=== PATIENT | male | born 1985 | race Caucasian/White ===

== ENCOUNTER 2016-06-16 15:40 | Emergency (ER) | payer OTHER ==
--- NOTE | 2016-06-16 15:44 | EDM.PDOC ---
ED HPI Trauma - General Chief Complaint: Lower Extremity Injury/Pain Stated Complaint: BROKEN RIGHT ANKLE Time Seen by Provider: 06/16/16 15:44 Source: Reports: Patient, Family, RN, RN notes reviewed History Limitations: Reports: No limitations - History of Present Illness INITIAL COMMENTS - FREE TEXT/NARRATIVE: Patient arrives by POV complaining of pain in right ankle which was sustained from a fall of approximately 20 feet from a tree to the ground. Patient states that he climbed a tree to retrieve his hat that had blown into the tree. He slipped and fell. Injury was not work related. Patient denies any other injury or any other area of pain, specifically denies any neck pain, thoracic pain, lumbosacral pain or pelvic pain. Denies any nausea or vomiting. Injury occurred approximately one and half hours ago. Symptom Onset Date: 06/16/16 Occurred Where: other Method of Injury: fall Severity: severe Pain/Injury Location: Reports: lower extremity, right Associated Symptoms: Reports: no other symptoms Allergies/ADRs: Allergies venom-honey bee [bee venom (honey bee)] Allergy (Intermediate, Verified 00:19) Airway Tightness hives cefaclor [From Ceclor] Allergy (Verified 03/30/16 00:19) Hives penicillin Allergy (Verified 03/30/16 00:19) Hives Home Medications: Ambulatory Orders . [No Known Home Meds] 12/04/13 [Confirmed 03/30/16] Past Medical History - Past Health History Medical/Surgical History: Denies Medical/Surgical History - Past Surgical History GI Surgical History: Reports: Appendectomy Social & Family History - Family History Family Medical History: Noncontributory - Tobacco Use Smoking Status *Q: Current Every Day Smoker Years of Tobacco use: 4 Packs/Tins Daily: 0.2 Second Hand Smoke Exposure: Yes - Caffeine Use Caffeine Use: Reports: Coffee, Energy drinks, Soda - Alcohol Use Days Per Week of Alcohol Use: 1 Number of Drinks Per Day: 1 Total Drinks Per Week: 1 - Recreational Drug Use Recreational Drug Use: No - Living Situation & Occupation Living situation: Reports: with family Review of Systems - Review of Systems Review Of Systems: ROS reveals no pertinent complaints other than HPI. Trauma Exam - Physical Exam Exam: See Below Text/Narrative:: PRIMARY TRAUMA SURVEY: Arrives by POV approx. 60 to 90 minutes after falling approx. 20ft from a tree and landing on his feet. Pt awake, alert, oriented to person, place, and date. Patent nasal and oral airways. Conversant with clear speech. Spontaneous respirations, with lungs CTA B/L. Good color, no cyanosis, intact peripheral pulses at all 4 distal extremities, normal capillary refill time at all four extremities distal digits. Heart RRR, no murmur, no rub. No bleeding. No upper extremity or left lower extremity pain, obvious deformity, lacerations, abrasions, swelling, bruising, discoloration, or other signs of injury. Right lower extremity with acutely painful ankle, mild lateral swelling , no bruising, or visible deformity, distal pulses intact, normal color, normal distal capillary refill. Jm pelvis intact, stable and non-tender. Abdomen benign to exam. Chest non-tender anteriorly, no flail chest, crepitus, or subcutaneous emphysema. CN II-XII intact. B/L shoulder and lateral upper arm to elbow subjective numbness to light and sharp touch R>>L, with mild generalized motor weakness of the Rt upper extremity, no other motor or sensory neuro. deficits. Skin clean, dry, warm, and intact. Pt was logged rolled with maintenance of c-spine immobilization, shirt was cut free from back. No visible injury to back, no vertebral jm tenderness. Long spine board removed and pt returned via log roll to supine position on firm foam padded ER gurney. SECONDARY TRAUMA SURVEY FOLLOWS: Exam Limited By: No limitations General Appearance: Reports: alert, WD/WN, anxious, mild distress (due to left ankle pain) Head: Reports: atraumatic, normocephalic Eyes: bilateral eye: EOMI, normal inspection, PERRL Ears: Reports: normal external exam, normal canal, hearing grossly normal, normal TMs Nose: Reports: normal inspection, normal mucousa, no blood Throat/Mouth: Reports: Normal inspection, Normal lips, Normal teeth, Normal gums , Normal oropharynx, Normal voice, No airway compromise Neck: Reports: non-tender, full range of motion, normal alignment, normal inspection, other (C-spine clear by Hx and exam, no Nexus criteria). Denies: paraspinous muscle tender, spinous processes tender, tenderness, tender lateral , tender midline Respiratory Exam: Reports: no respiratory distress, lungs clear, normal breath sounds, no accessory muscle use, chest non-tender Cardiovascular: Reports: normal peripheral pulses, regular rate, rhythm, no edema, no gallop, no JVD, no murmur, no rub, tachycardia (HR 102) GI/Abdominal: Reports: normal bowel sounds, soft, non tender, no organomegaly, no distention, no abnormal bruit, no mass. Denies: rigid, guarding, rebound (Male) Exam: Deferred Rectal (Males) Exam: Deferred Back: Reports: full range of motion, normal inspection, non-tender. 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 DIRECTED Care 06/16/16 15:56 Active Splinting [RC] ASDIRECTED Care 06/16/16 16:10 Active AMYLASE [CHEM] Stat Lab 06/16/16 16:12 Received COMPREHENSIVE METABOLIC PN,CMP [CHEM] Stat Lab 06/16/16 16:12 Received DRUG SCREEN URINE BIORAD [URCHEM] Stat Lab 06/16/16 16:51 Ordered ETHANOL BLOOD MEDICAL [CHEM] Stat Lab 06/16/16 16:12 Received LIPASE [CHEM] Stat Lab 06/16/16 16:12 Received UA W/MICROSCOPIC [URIN] Stat Lab 06/16/16 16:51 Ordered Sodium Chloride 0.9% [Saline Flush] Med 06/16/16 15:52 Active 10 ml FLUSH ASDIRECTED PRN DME for Discharge [COMM] Routine Oth 06/16/16 16:10 Ordered DME for Discharge [COMM] Routine Oth 06/16/16 16:11 Ordered Peripheral IV Insertion Adult [OM.PC] Stat Oth 06/16/16 15:53 Ordered Medication Orders Sodium Chloride (Saline Flush) 10 ml FLUSH ASDIRECTED PRN PRN Reason: Keep Vein Open Last Admin: 06/16/16 16:54 Dose: 10 ml Labs: Laboratory Tests 06/16/16 06/16/16 Range/Units 16:12 16:12 WBC 9.0 (5.0-10.0) 10^3/uL RBC 4.90 (4.6-6.2) 10^6/uL Hgb 15.5 (14.0-18.0) g/dL Hct 43.5 (40.0-54.0) % MCV 88.8 (80-100) fL MCH 31.6 (27.0-34.0) pg MCHC 35.6 H (33.0-35.0) g/dL Plt Count 282 (150-450) 10^3/uL Neut % (Auto) 54.9 (42.2-75.2) % Lymph % (Auto) 34.2 (20.5-50.1) % [place] % (Auto) 7.6 (2-8) % Eos % (Auto) 2.7 (1.0-3.0) % Baso % (Auto) 0.6 (0.0-1.0) % PT 9.7 (9.0-12.0) SEC INR 1.0 (0.9-1.2) APTT 21.5 L (22.0-34.0) SEC Meds: Medications Generic Name Dose Route Start Last Admin Trade Name Freq PRN Reason Stop Dose Admin Sodium Chloride 10 ml 06/16/16 15:52 06/16/16 16:54 Saline Flush FLUSH 10 ml ASDIRECTED PRN Administration Keep Vein Open Discontinued Medications Generic Name Dose Route Start Last Admin Trade Name Freq PRN Reason Stop Dose Admin Hydromorphone HCl 1 mg 06/16/16 15:57 06/16/16 16:15 Dilaudid IVPUSH 06/16/16 15:58 1 mg ONETIME ONE Administration Sodium Chloride 1,000 mls @ 999 mls/hr 06/16/16 15:57 06/16/16 16:52 Normal Saline IV 06/16/16 16:57 999 mls/hr .BOLUS ONE Administration Iopamidol 100 ml 06/16/16 16:51 06/16/16 16:54 Isovue-300 (61%) IVPUSH 06/16/16 16:52 100 ml ONETIME ONE Administration Ondansetron HCl 4 mg 06/16/16 15:57 06/16/16 16:15 Zofran IV 06/16/16 15:58 4 mg ONETIME ONE Administration - Radiology Interpretation Free Text/Narrative:: Right ankle x-ray: Angulated distal fibula fracture minimally displaced. See rad report. Chest CT: Normal chest CT per rad report. CT abdomen and pelvis: Per rad report no acute findings. - Re-Assessments/Exams Free Text/Narrative Re-Assessment/Exam: 06/16/16 17:18 I explained the exam findings, results of all diagnostic tests, working diagnosis, and any potential or additionally considered diagnoses, treatment/ disposition plan, self/home care instructions, rational for the diagnosis/ treatment plan/disposition plan, anticipated course of illness, and follow up instructions to the pt and/or pts family or guardian. The pt and/or pts family or guardian acknowledges understanding of the above explanation(s), and of the signs and symptoms which should prompt the return of the pt to the ER should those or any other concerning symptoms develop. Departure - Departure Time of Disposition: 17:18 Disposition: Home, Self-Care 01 Condition: good Clinical Impression: Closed fracture of distal fibula Qualifiers: Encounter type: initial encounter Fracture morphology: other fracture Laterality: right Qualified Code(s): S82.831A - Other fracture of upper and lower end of right fibula, initial encounter for closed fracture Fall from tree Qualifiers: Encounter type: initial encounter Qualified Code(s): W14.XXXA - Fall from tree , initial encounter Instructions: Ankle Fracture, [id number]-uv-[id number] Forms: ED Department Discharge Additional Instructions: Use splint boot, remove only to wash. No weight bearing on right foot, use crutches. Rest, ice and elevate right ankle. [place] 5mg/325mg. Call [facility] SundayJune 20 to make appointment with Dr. Avery Yao. Return to ER if any problems over the holiday weekend. - My Orders Last 24 Hours: My Active Orders 06/16/16 15:52 Sodium Chloride 0.9% [Saline Flush] 10 ml FLUSH ASDIRECTED PRN 06/16/16 15:53 Peripheral IV Insertion Adult [OM.PC] Stat 06/16/16 15:56 Peripheral IV Care [RC] . DIRECTED 06/16/16 16:10 Splinting [RC] ASDIRECTED DME for Discharge [COMM] Routine 06/16/16 16:11 DME for Discharge [COMM] Routine 06/16/16 16:12 AMYLASE [CHEM] Stat COMPREHENSIVE METABOLIC PN,CMP [CHEM] Stat ETHANOL BLOOD MEDICAL [CHEM] Stat LIPASE [CHEM] Stat 06/16/16 16:51 DRUG SCREEN URINE BIORAD [URCHEM] Stat UA W/MICROSCOPIC [URIN] Stat - Assessment/Plan Last 24 Hours: My Active Orders 06/16/16 15:52 Sodium Chloride 0.9% [Saline Flush] 10 ml FLUSH ASDIRECTED PRN 06/16/16 15:53 Peripheral IV Insertion Adult [OM.PC] Stat 06/16/16 15:56 Peripheral IV Care [RC] . DIRECTED 06/16/16 16:10 Splinting [RC] ASDIRECTED DME for Discharge [COMM] Routine 06/16/16 16:11 DME for Discharge [COMM] Routine 06/16/16 16:12 AMYLASE [CHEM] Stat COMPREHENSIVE METABOLIC PN,CMP [CHEM] Stat ETHANOL BLOOD MEDICAL [CHEM] Stat LIPASE [CHEM] Stat 06/16/16 16:51 DRUG SCREEN URINE BIORAD [URCHEM] Stat UA W/MICROSCOPIC [URIN] Stat
[2016-06-16 15:46] VITALS: BP 138/92
[2016-06-16] MEDS ORDERED: Sodium Chloride 0.9% 10 ML Syringe FLUSH PRN (15:52)
[2016-06-16] MEDS ORDERED: Ondansetron 4 MG/2 ML SDV IV ONE (15:57)
[2016-06-16] MEDS ORDERED: HYDROmorphone 1 MG/ML Syringe IVPUSH ONE (15:57)
[2016-06-16] MEDS ORDERED: Sodium Chloride 0.9% 1,000 ML IV ONE (15:57)
[2016-06-16 16:38] LABS: CHLORIDE,CL 102 mmol/L (101-111); SODIUM,NA 137 mmol/L (135-145)
[2016-06-16] MEDS ORDERED: Iopamidol 612 MG/ML 100 ML Bottle IVPUSH ONE (16:51)
== END 2016-06-16 17:54 | disposition home or self-care (01) ==
LOC: DL.ED 15:40
DX: S82.831A Other fracture of upper and lower end of right fibula, initial encounter for closed fracture (principal); F17.210 Nicotine dependence, cigarettes, uncomplicated; Z90.49 Acquired absence of other specified parts of digestive tract; Z91.030 Bee allergy status; Z88.0 Allergy status to penicillin; Z88.8 Allergy status to other drugs, medicaments and biological substances; W14.XXXA Fall from tree, initial encounter
CPT/HCPCS: 36415; 71260; 73610; 74177; 80053; 80305; 81001; 82150; 83690; 85025; 85610; 85730; 96361; 96374; 96375; 99285; G0480; J1170; J2405; J7030; J7050; Q9967

== ENCOUNTER 2017-02-04 14:12 | Emergency (ER) | payer OTHER ==
[2017-02-04 14:19] VITALS: BP 135/91
--- NOTE | 2017-02-04 14:59 | EDM.PDOC ---
Scribed by Helga Vigil 02/04/17 1804 for Adalid Gonzalez MD ED HPI GENERAL MEDICAL PROBLEM - General Chief Complaint: ENT Problem Stated Complaint: COLD, LEFT EAR PLUGGED Time Seen by Provider: 02/04/17 14:25 Source of Information: Reports: Patient, RN, RN Notes Reviewed History Limitations: Reports: No Limitations - History of Present Illness INITIAL COMMENTS - FREE TEXT/NARRATIVE: Patient complains of cough, cold and congestion x1 week. Onset of left earache last night and sore throat x3 days. Denies fevers. Today he blew his nose and had a sharp left ear pain followed by blood drainage from the left ear. Location: Reports: Head Quality: Reports: Ache Severity: Severe Improves with: Reports: None Worsens with: Reports: None Associated Symptoms: Reports: No Other Symptoms Left Ear Pain Score (Numeric/FACES): 6 - Related Data Allergies Allergy/AdvReac Type Severity Reaction Status Date / Time venom-honey bee Allergy Intermediate Airway Verified 03/30/16 00:19 [bee venom (honey bee)] Tightness cefaclor [From Ceclor] Allergy Hives Verified 03/30/16 00:19 penicillin Allergy Hives Verified 03/30/16 00:19 Home Meds: Home Meds . [No Known Home Meds] 12/04/13 [History] Past Medical History - Past Health History Medical/Surgical History: Denies Medical/Surgical History HEENT History: Reports: Otitis Media (recurrent with tubes.) - Past Surgical History HEENT Surgical History: Reports: Myringotomy w Tube(s) GI Surgical History: Reports: Appendectomy Social & Family History - Family History Family Medical History: Noncontributory - Tobacco Use Smoking Status *Q: Current Every Day Smoker Years of Tobacco use: 4 Packs/Tins Daily: 0.2 Second Hand Smoke Exposure: Yes - Caffeine Use Caffeine Use: Reports: Coffee, Energy Drinks, Soda - Alcohol Use Days Per Week of Alcohol Use: 1 Number of Drinks Per Day: 1 Total Drinks Per Week: 1 - Recreational Drug Use Recreational Drug Use: No - Living Situation & Occupation Living situation: Reports: with Family ED ROS ENT - Review of Systems Review Of Systems: ROS reveals no pertinent complaints other than HPI. ED EXAM, ENT - Physical Exam Exam: See Below Exam Limited By: No Limitations General Appearance: Alert, WD/WN, No Apparent Distress Eye Exam: Bilateral Eye: Normal Inspection Ears: Other (Right ear normal. Left canal with small amount of blood drainage. Left TM erythematous dull and perforated.) Nose: Other (nasal congestion) Mouth/Throat: Other (pharyngeal erythema with moderatetonsil swelling and exudates.) Head: Atraumatic, Normocephalic Neck: Full Range of Motion, Other (No nuchal rigidity. Shoddy cervica llymphadenopathy.) Respiratory/Chest: Other (dry cough.) Cardiovascular: Normal Peripheral Pulses, Regular Rate, Rhythm, No Edema, No Gallop, No JVD, No Murmur, No Rub GI/Abdominal: Normal Bowel Sounds, Soft, Non-Tender, No Organomegaly, No Distention, No Abnormal Bruit, No Mass (Male) Exam: Deferred Rectal (Males) Exam: Deferred Back: Normal Inspection, Full Range of Motion Extremities: Normal Inspection, Normal Range of Motion, Non-Tender, No Pedal Edema, Normal Capillary Refill Neurological: Alert, Oriented, CN II-XII Intact, Normal Cognition, Normal Gait, Normal Reflexes, No Motor/Sensory Deficits Psychiatric: Normal Affect, Normal Mood Skin: Warm, Dry, Intact, Normal Color, No Rash Course - Vital Signs Last Recorded V/S: Last Vital Signs Temp 36.0 C 02/04/17 14:18 Pulse 64 02/04/17 14:18 Resp 16 02/04/17 14:18 BP 135/91 H 02/04/17 14:18 Pulse Ox 98 02/04/17 14:18 - Orders/Labs/Meds Labs: Rapid strep: Positive. Influenza A and B: Departure - Departure Time of Disposition: 14:31 Disposition: Home, Self-Care 01 Condition: Fair Clinical Impression: Viral URI with cough Otitis media Qualifiers: Otitis media type: suppurative Chronicity: acute Laterality: left Recurrence: not specified as recurrent Spontaneous tympanic membrane rupture: with spontaneous rupture Qualified Code(s): H66.012 - Acute suppurative otitis media with spontaneous rupture of ear drum, left ear Barotitis Qualifiers: Encounter type: initial encounter Qualified Code(s): T70.0XXA - Otitic barotrauma, initial encounter Pharyngitis Qualifiers: Pharyngitis/tonsillitis etiology: streptococcus Qualified Code(s): J02.0 - Streptococcal pharyngitis - Discharge Information Instructions: Barotitis Media, Otitis Media, Adult, [id number], Strep Throat , [id number], Upper Respiratory Infection, Adult, Olcz-[id number], Pharyngitis, [id number]-[id number] Forms: ED Department Discharge Additional Instructions: RX: Claritin D24 hours. RX: Cortisporin otic suspension. RX: Prednisone 20mg. RX: Zithromax 250mg. Follow up in clinic in 7-10 days. I have read and agree with the documentation that has been completed regarding this visit. By signing this record, I attest that the documentation was completed in my physical presence and is an accurate record of the encounter.
== END 2017-02-04 15:05 | disposition home or self-care (01) ==
LOC: DL.ED 14:12
DX: H66.012 Acute suppurative otitis media with spontaneous rupture of ear drum, left ear (principal); T70.0XXA Otitic barotrauma, initial encounter; J02.0 Streptococcal pharyngitis; F17.210 Nicotine dependence, cigarettes, uncomplicated; Z91.030 Bee allergy status; Z88.1 Allergy status to other antibiotic agents; Z88.0 Allergy status to penicillin
CPT/HCPCS: 87430; 87804; 99283

== ENCOUNTER 2020-09-03 16:47 | Emergency (ER) | payer OTHER ==
[2020-09-03] MEDS ORDERED: Lidocaine 1% 30 ML SDV INJECT ONE (18:08)
[2020-09-03] MEDS ORDERED: Diphtheria,Pertussis(Acell),Tetanus Vaccine 0.5 ML Syringe IM ONE (18:11)
[2020-09-03 18:12] VITALS: BP 123/74; PULSE 60
--- NOTE | 2020-09-03 18:14 | EDM.PDOC ---
ED HPI GENERAL MEDICAL PROBLEM - General Chief Complaint: Trauma Stated Complaint: RIGHT MIDDLE FINGER,TOP PART OF KNUCKLE CHAINSAW Time Seen by Provider: 09/03/20 18:10 - History of Present Illness INITIAL COMMENTS - FREE TEXT/NARRATIVE: Patient is unfortunate 35-year-old male who presents emerged part today with complaint of laceration to right middle finger. The patient reports he was in his normal state of health till approximately 1 hour prior to arrival when he was assisting his father cutting some wood and the chainsaw hit the dorsal medial aspect of the distal phalanx of the right middle finger, he has i rregular laceration 1 x 1 cm area with multiple flaps, the patient has no tendon dysfunction noted, distal neurovascular is intact at this time, the patient does not know his last tetanus shot was Right Hand Pain Score (Numeric/FACES): 4 - Related Data Allergies Allergy/AdvReac Type Severity Reaction Status Date / Time venom-honey bee Allergy Intermediate Airway Verified 09/03/20 18:10 [bee venom (honey bee)] Tightness cefaclor [From Ceclor] Allergy Hives Verified 09/03/20 18:10 penicillin Allergy Hives Verified 09/03/20 18:10 Home Meds: Home Meds Sulfamethoxazole/Trimethoprim [Bactrim Ds Tablet] 1 each PO BID #14 tablet 09/03/20 [Rx] Past Medical History - Past Health History Medical/Surgical History: Denies Medical/Surgical History HEENT History: Reports: Otitis Media (recurrent with tubes.) - Past Surgical History HEENT Surgical History: Reports: Myringotomy w Tube(s) GI Surgical History: Reports: Appendectomy Social & Family History - Family History Family Medical History: No Pertinent Family History - Caffeine Use Caffeine Use: Reports: Coffee, Energy Drinks, Soda - Living Situation & Occupation Living situation: Reports: with Family Review of Systems - Review of Systems Review Of Systems: Comprehensive ROS is negative, except as noted in HPI. Constitutional: Denies: Chills, Diaphoresis Musculoskeletal: Reports: Other (exremity laceration) ED EXAM, GENERAL - Physical Exam Exam: See Below Exam Limited By: No Limitations General Appearance: Alert, WD/WN, Mild Distress Respiratory/Chest: No Respiratory Distress, Lungs Clear, Normal Breath Sounds, No Accessory Muscle Use, Chest Non-Tender Cardiovascular: Normal Peripheral Pulses, Regular Rate, Rhythm, No Edema, No Gallop, No JVD, No Murmur, No Rub GI/Abdominal: Normal Bowel Sounds, Soft, Non-Tender, No Organomegaly, No Distention, No Abnormal Bruit, No Mass Back Exam: Normal Inspection, Full Range of Motion, NT Extremities: Normal Range of Motion, Normal Capillary Refill, Other (1 cm laceration flap-like with multiple flaps to the dorsal medial aspect of the right middle finger distal phalanx, no tendon dysfunction noted, distal neurovascular is intact) Neurological: Alert, Oriented Skin Exam: Warm, Dry ED TRAUMA EXTREMITY PROCEDURES - Laceration/Wound Repair Right Middle Posterior Medial Distal Digit - 3rd (Middle) Lac/Wound Length In cm: 1 Appearance: Subcutaneous, Clean Distal NVT: Neuro & Vascular Intact, No Tendon Injury Anesthetic Type: Local Local Anesthesia - Lidocaine (Xylocaine): 1% Plain, Other (2 ml) Local Anesthetic Volume: 2cc Saline Irrigation (cc's): 250 Exploration/Debridement/Repair: Minimal Debridement Closed With: Sutures Suture Size: 5-0 # of Sutures: 5 Suture Type: Simple Course - Vital Signs Last Recorded V/S: Last Vital Signs Temp 97 F 09/03/20 18:11 Pulse 60 09/03/20 18:11 Resp 16 09/03/20 18:11 BP 123/74 09/03/20 18:11 Pulse Ox 98 09/03/20 18:11 - Orders/Labs/Meds Orders: Active Orders 24 hr Category Date Time Status Vaccines to be Administered [RC] PER UNIT ROUTINE Care 09/03/20 18:11 Active Meds: Medications Discontinued Medications Generic Name Dose Route Start Last Admin Trade Name Fanta PRN Reason Stop Dose Admin Diphtheria/Tetanus/Acell Pertussis 0.5 ml 09/03/20 18:11 09/03/20 18:22 Diphtheria,Pertussis(Acell),Tetanus Vaccine 0.5 Ml Syringe IM 09/03/20 18:12 0.5 ml .ONCE ONE Administration Lidocaine HCl 30 ml 09/03/20 18:08 09/03/20 18:22 Lidocaine 1% 30 Ml Sdv INJECT 09/03/20 18:09 30 ml ONETIME ONE Administration Departure - Departure Time of Disposition: 18:58 Disposition: Home, Self-Care 01 Clinical Impression: Laceration of right middle finger w/o foreign body w/o damage to nail Qualifiers: Encounter type: initial encounter Qualified Code(s): S61.212A - Laceration without foreign body of right middle finger without damage to nail, initial encounter - Discharge Information *PRESCRIPTION DRUG MONITORING PROGRAM REVIEWED*: No *COPY OF PRESCRIPTION DRUG MONITORING REPORT IN PATIENT JOVANI: No Prescriptions: Sulfamethoxazole/Trimethoprim [Bactrim Ds Tablet] 1 each PO BID #14 tablet Instructions: Laceration Care, Adult Forms: ED Department Discharge Additional Instructions: Home, rest, keep wound clean and dry, clean wound daily apply Neosporin and bandage, sutures out in 5 to 7 days, return as needed for worsening condition Sepsis Event Note (ED) - Focused Exam Vital Signs: Vital Signs Temp Pulse Resp BP Pulse Ox 09/03/20 18:11 97 F 60 16 123/74 98 - My Orders Last 24 Hours: My Active Orders 09/03/20 18:11 Vaccines to be Administered [RC] PER UNIT ROUTINE - Assessment/Plan Last 24 Hours: My Active Orders 09/03/20 18:11 Vaccines to be Administered [RC] PER UNIT ROUTINE
--- NOTE | 2020-09-03 18:44 | CR ---
PROCEDURE INFORMATION: Exam: XR Right Finger(s) Exam date and time: 09/03/2020 6:14 PM Age: 35 years old Clinical indication: Other: Nicked with chainsaw; Additional info: Pain/trauma TECHNIQUE: Imaging protocol: XR Right fingers. Views: Minimum 2 views. COMPARISON: No relevant prior studies available. FINDINGS: Bones/joints: There is minimal irregularity in the contour of the 3rd distal phalanx at the dorsal and ulnar aspect of its base. Soft tissues: soft tissue irregularity adjacent to the contour irregularity at base of 3rd distal phalanx. IMPRESSION: Soft tissue injury and possible bony injury at the level of the base of the 3rd distal phalanx as above.
== END 2020-09-03 19:18 | disposition home or self-care (01) ==
LOC: DL.ED 16:47
DX: S61.212A Laceration without foreign body of right middle finger without damage to nail, initial encounter (principal); Z23 Encounter for immunization; Z88.0 Allergy status to penicillin; Z91.030 Bee allergy status; Z88.1 Allergy status to other antibiotic agents; W29.3XXA Contact with powered garden and outdoor hand tools and machinery, initial encounter
CPT/HCPCS: 12001; 73140-F7; 90471; 90715; 99283-25